=== PATIENT | female | born 1940 | race Two or more races ===

== ENCOUNTER 2018-09-18 23:50 | Emergency (ER) | payer OTHER ==
--- NOTE | 2018-09-18 23:55 | PDOC ---
History of Present Illness - General Chief Complaint: Chest Pain Stated Complaint: COUGH, CHEST/BACK PAIN Time Seen by Provider: 09/18/18 23:55 - History of Present Illness Initial Comments: 09/19/18 00:57 Pt presents to the ED complaining of a three hour history of substernal chest pain radiating to the back that began while seated. Pain is burning and squeezing and is described as moderate in severity. Pain radiates to the back and is constant and non exertional. Patient had UT with stent placement in [place] 3 months ago and is taking plavix. PAin with UT was not similar to this pain. Also complaining of cough, which she states is chronic and unchanged. 09/19/18 00:59 09/19/18 01:05 09/19/18 01:11 Past History - Past Medical History Allergies/Adverse Reactions: Allergies Allergy/AdvReac Type Severity Reaction Status Date / Time No Known Allergies Allergy Unverified 09/18/18 23:56 Home Medications: Ambulatory Orders Aspirin [Ecotrin] 81 mg PO DAILY 09/19/18 Atorvastatin Ca [Lipitor] 40 mg PO HS 09/19/18 Benzonatate 200 mg PO TID PRN 09/19/18 Clopidogrel Bisulfate [Clopidogrel] 75 mg PO DAILY 09/19/18 Metoprolol Tartrate 50 mg PO BID 09/19/18 Pantoprazole Sodium 40 mg PO DAILY 09/19/18 Tramadol HCl 50 mg PO QID PRN 09/19/18 Review of Systems - Review of Systems Able to Perform ROS?: Yes Is the patient limited Dutch proficient: No Constitutional: No: Symptoms Reported, See HPI, Chills, Diaphoresis, Fever, Loss of Appetite, Malaise, Night Sweats, Weakness, Weight Stable, Unintentional Wgt. Loss, Unexplained wgt Loss, Other HEENTM: No: Symptoms Reported, See HPI, Eye Pain, Blurred Vision, Tearing, Recent change in vision, Double Vision, Cataracts, Ear Pain, Ocular Prothesis, Ear Discharge, Nose Pain, Nose Congestion, Tinnitus, Nose Bleeding, Hearing Loss , Throat Pain, Throat Swelling, Mouth Pain, Dental Problems, Difficulty Swallowing, Mouth Swelling, Other Respiratory: Yes: Cough, Shortness of Breath Cardiac (ROS): Yes: Chest Pain, Chest Tightness. No: Symptoms Reported, See HPI , Edema, Irregular Heart Rate, Lightheadedness, Palpitations, Syncope, Other ABD/GI: No: Symptoms Reported, See HPI, Abdominal Distended, Abd. Pain w/ defecation, Blood Streaked Bowels, Constipated, Diarrhea, Difficulty Swallowing , Nausea, Poor Appetite, Poor Fluid Intake, Rectal Bleeding, Vomiting, Indigestion, Abdominal cramping, Tarry Stools, Other : No: Symptoms Reported, See HPI, Burning, Dysuria, Discharge, Frequency, Flank Pain, Hematuria, Incontinence, Pain, Urgency, Testicular Mass, Testicular Swelling, Lesions, Testicular Pain, Other Integumentary: No: Symptoms Reported, See HPI, Bruising, Change in Color, Change in Hair/Nails, Dryness, Erythema, Flushing, Lesions, Lumps, Pallor, Pruritus, Rash, Sweating, Other Neurological: No: Symptoms reported, See HPI, Headache, Numbness, Paresthesia, Pre-Existing Deficit, Seizure, Tingling, Tremors, Weakness, Unsteady Gait, Ataxia, Dizziness, Other Endocrine: No: Symptoms Reported, See HPI, Excessive Sweating, Flushing, Intolerance to Cold, Intolerance to Heat, Increased Hunger, Increased Thirst, Increased Urine, Unexplained Weight Gain, Unexplained Weight Loss, Change in Weight, Other Hematologic/Lymphatic: No: Symptoms Reported, See HPI, Anemia, Blood Clots, Easy Bleeding, Easy Bruising, Bleeding Diathesis, Lymph Node Abnormalities, Swollen Glands, Other All Other Systems: Reviewed and Negative *Physical Exam - Physical Exam Comments: 09/19/18 01:15 Gen: alert, NAD HEENT: normocephalic, atraumatic Cv: RRR no murmurs Pulm: CTa b/l Abdomen: soft, non tender, non distended Ext: no edema, deformity or tenderness Neuro: alert and oriented x 3, normal mood and affect Skin: warm and dry, no pallor, jaundice or rashes. ED Treatment Course - LABORATORY CBC & Chemistry Diagram: 09/19/18 00:25 09/19/18 00:25 Medical Decision Making - Medical Decision Making 09/19/18 01:18 Pt presents to the ED complaining of three hours of chest pain. Extensive cardiac risk factors with HEART Score of 6. EKG is negative, but given history , patient will be observed overnight for rule out ACS. 09/19/18 02:21 plan was for admission, but patient is refusing. Explained risks of leaving, including UT, worsening cardiac function and , but patient is chest pain free and desires to go home. Son states that she has cardiology follow up on Friday, and he will bring her back for worsening symptoms. *DC/Admit/Observation/Transfer Diagnosis at time of Disposition: Chest pain Qualifiers: Chest pain type: other chest pain Qualified Code(s): R07.89 - Other chest pain ; R07.8 - Other chest pain - Discharge Dispostion Disposition: AGAINST MEDICAL ADVICE Condition at time of disposition: Good Decision to Admit order: No - Referrals - Patient Instructions Printed Discharge Instructions: DI for Chest Pain Additional Instructions: you came to the Ed with chest pain, and are leaving against medical advice. Even though your initial blood work was normal, you may still be having a heart attack. If you have worsening chest pain or shortness of breath or any other new symptoms, you should return to the ED right away. 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 - Post Discharge Activity
[2018-09-19 00:02] VITALS: TEMP 99.4; BMI 21.4
[2018-09-19] MEDS ORDERED: ASPIRIN 81 MG CHEWABLE TABLETS PO ONE (00:10)
[2018-09-19] MEDS ORDERED: NITROGLYCERIN SUBLINGUAL 1/150 0.4 MG TAB SL ONE (00:11)
[2018-09-19] MEDS ORDERED: ACETAMINOPHEN 1000 MG/100 ML VIAL (NON FORMULARY) IVPB ONE (00:11)
[2018-09-19] MEDS ORDERED: NITROGLYCERIN SUBLINGUAL 1/150 0.4 MG TAB ONE (00:13)
[2018-09-19] MEDS ORDERED: ACETAMINOPHEN INJECTION 100 ML IVPB ONE (00:13)
[2018-09-19] MEDS ORDERED: ASPIRIN 81 MG CHEWABLE TABLETS ONE (00:13)
[2018-09-19 01:22] LABS: BASO % 0.5 % (0-2.0); EOS % 1.7 % (0-4.5); HEMATOCRIT 39.2 % (32.4-45.2); HEMOGLOBIN 13.2 GM/dL (10.7-15.3); LYMPH % 27.4 % (8-40); MCH 29.9 pg (25.7-33.7); MCHC 33.6 g/dl (32.0-36.0); MEAN CELL VOLUME 89.2 fl (80-96); MEAN PLT VOLUME 8.1 fl (7.5-11.1); MONO % 7.6 % (3.8-10.2); NEUT % 62.8 % (42.8-82.8); PLATELET COUNT 334 K/MM3 (134-434); RDW 13.7 % (11.6-15.6); WHITE BLOOD COUNT 10.6 K/mm3 (4.0-10.0)
[2018-09-19 02:02] VITALS: BP 104/86; PULSE 84
[2018-09-19 02:06] LABS: ALBUMIN 3.8 g/dl (3.4-5.0); BILIRUBIN,TOTAL 0.4 mg/dL (0.2-1); BLOOD UREA NITROGEN 18.6 mg/dL (7-18); CALCIUM 8.8 mg/dL (8.5-10.1); CREATININE 0.9 mg/dL (0.55-1.3); POTASSIUM 4.1 mmol/L (3.5-5.1); TOT PROT 7.8 g/dl (6.4-8.2)
--- NOTE | 2018-09-19 12:35 | EKG ---
Test Reason : Blood Pressure : / mmHG Vent. Rate : 095 BPM Atrial Rate : 095 BPM P-R Int : 160 ms QRS Dur : 092 ms QT Int : 364 ms P-R-T Axes : 057 -50 -36 degrees QTc Int : 457 ms SINUS RHYTHM WITH PREMATURE ATRIAL COMPLEXES WITH ABERRANT CONDUCTION LEFT AXIS DEVIATION MINIMAL VOLTAGE CRITERIA FOR LVH, MAY BE NORMAL VARIANT INFERIOR-POSTERIOR INFARCT , AGE UNDETERMINED ANTEROLATERAL INFARCT , AGE UNDETERMINED ABNORMAL ECG NO PREVIOUS ECGS AVAILABLE Confirmed by FRANSISCO RIVAS MD ([id number]) on 09/19/2018 12:34:33 PM Referred By: MD GALLO Confirmed By:FRANSISCO RIVAS MD
== END 2018-09-19 02:28 | disposition left against medical advice (07) ==
LOC: FER 23:50
PROC: 3E033NZ Introduction of Analgesics, Hypnotics, Sedatives into Peripheral Vein, Percutaneous Approach (ICD-10-PCS; principal; 2018-09-18)
DX: R07.89 Other chest pain (principal)
CPT/HCPCS: 36415; 71045-TC-FY; 80053; 82550; 84484; 85025; 93005; 96374; 99283-25; J0131